=== PATIENT | male | born 1970 | race Two or more races ===

== ENCOUNTER 2021-02-28 00:41 | Emergency (ER) | payer SELFPAY ==
[~2021-02-28] VITALS: Ht 180.3 cm; Wt 77.1 kg
--- NOTE | 2021-02-28 01:08 | NUR ---
Pt states,"I just pee'd before I came in."
[2021-02-28] MEDS ORDERED: MORPHINE SULFATE 4 MG/1 ML DISP.SYRIN IM ONE (01:15)
[2021-02-28] MEDS ORDERED: ACETAMINOPHEN 325 MG TABLET PO ONE (01:15)
[2021-02-28] MEDS ORDERED: ACETAMINOPHEN ES 500 MG TABLET ONE (01:33)
[2021-02-28] MEDS ORDERED: MORPHINE SULFATE 4 MG/1 ML DISP.SYRIN ONE (01:34)
[2021-02-28 01:49] LABS: *BILIRUBIN,URIN NEGATIVE (NEGATIVE); *BLOOD, URINE 1+ (NEGATIVE); *COLOR,URINE YELLOW (YELLOW); *KETONES,URINE TRACE (NEGATIVE); LEUKOCYTE ESTERASE ,URINE NEGATIVE (NEGATIVE); NITRITE, URINE NEGATIVE (NEGATIVE); UGLUCOSE NEGATIVE (NEGATIVE)
[2021-02-28 01:59] LABS: *CLARITY,URINE HAZY (CLEAR); BACTERIA,URINE NONE SEEN /HPF (NONE SEEN); SQUAMOUS EPITHELIAL CELL,UR FEW /HPF (NONE SEEN)
[2021-02-28] MEDS ORDERED: CEFTRIAXONE 500 MG VIAL IM ONE (02:00)
[2021-02-28] MEDS ORDERED: AZITHROMYCIN 250 MG TABLET PO ONE (02:00)
[2021-02-28] MEDS ORDERED: LEVO500T90 PO (02:06)
[2021-02-28] MEDS ORDERED: CEFTRIAXONE 500 MG VIAL ONE (02:10)
[2021-02-28] MEDS ORDERED: AZITHROMYCIN 250 MG TABLET ONE ×2 (02:10→02:17)
[2021-02-28 02:30] VITALS: BP 133/71
[2021-03-03 16:02] LABS: *GC NAA NEGATIVE; *TRIC.VAG. NAA NEGATIVE
== END 2021-02-28 02:31 | disposition home or self-care (01) ==
LOC: ER 00:49
DX: R31.29 Other microscopic hematuria (principal); N50.89 Other specified disorders of the male genital organs; Z20.2 Contact with and (suspected) exposure to infections with a predominantly sexual mode of transmission
CPT/HCPCS: 76870; 81001; 96372 ×2; 99284; J0696; J2270; 87491; A4663; A9150; Q0144